=== PATIENT | male | born 1975 | race Hispanic/Latino ===

== ENCOUNTER 2019-01-10 02:07 | Emergency (ER) | payer OTHER, SELFPAY ==
[2019-01-10 02:10] VITALS: BP 152/91; PULSE 66; RESP 15; TEMP 36.6; O2SAT 98; BMI 30.7
[2019-01-10 02:19] LABS: Bilirubin Urine UA NEGATIVE (NEGATIVE); Color Urine UA YELLOW; Glucose Urine UA NEGATIVE (Negative); Ketones Urine UA NEGATIVE (NEGATIVE); Leukocyte Esterase Urine UA NEGATIVE (NEGATIVE); Nitrite Urine UA NEGATIVE (Negative); Occult Blood Urine UA 3+ (Negative); Protein Urine UA 1+ (Negative); Specific Gravity Urine UA >=1.030 (1.000-1.035); Urobilinogen Urine UA 0.2 E.U./dL (0.2)
--- NOTE | 2019-01-10 02:23 | DI.CT.S_ITS ---
PROCEDURE: CT KIDNEY URETER BLADDER (KUB) INDICATIONS: L flank pain, nausea TECHNIQUE: Noncontrast 5 mm thick sections acquired from the diaphragms to the symphysis. 5 mm thick coronal and sagittal reformats were then performed. For radiation dose reduction, the following was used: automated exposure control, adjustment of mA and/or kV according to patient size. COMPARISON: None. FINDINGS: Image quality: Excellent. Lung bases: Lung bases are clear. Heart size is normal. Urinary system: There is a 2-3 mm stone seen at the distalmost left ureterovesicular junction, as on series 2 image 91. There is associated mild left-sided hydroureter and hydronephrosis. There is a nonobstructing 1-2 mm stone seen within the left kidney. No nonobstructing right-sided kidney stones are seen. No right-sided hydronephrosis. Both kidneys are normal in size. There is a water density cyst at the superior pole of the right kidney that measures 11 mm. Both ureters appear non-dilated throughout their expected courses. Bladder wall thickness is normal; no calcified bladder stones. Other solid organs: Liver is normal in size. Diffuse fatty liver infiltration is noted. Gallbladder wall is not thickened. Pancreas is normal in contours. Spleen is normal in size. No adrenal nodules. Peritoneum and bowel: Unenhanced bowel loops demonstrate normal wall thickness and caliber. No free fluid or air. Incidental note is made of a normal-appearing appendix. Nodes and vessels: No retroperitoneal or mesenteric adenopathy by size criteria. Aorta and inferior vena cava are normal in caliber. Abdominal wall: No ventral hernias. Pelvis: No free pelvic fluid. No inguinal hernias or adenopathy. Bones: No suspicious bony lesions. No vertebral body compression fractures. IMPRESSION: 2-3 mm obstructing left ureterovesicular junction stone. 1-2 mm nonobstructing left-sided kidney stone. Incidental note is made of: Fatty liver infiltration Normal appendix Note: No significant discrepancy from the preliminary report. Dictated by: Sudheer Garzon M.D. on 01/10/2019 at 8:43 Approved by: Sudheer Garzon M.D. on 01/10/2019 at 8:46
[2019-01-10 02:24] LABS: Appearance Urine UA Cloudy
--- NOTE | 2019-01-10 02:25 | ED.ABDPAIN ---
HPI - Abdominal Pain General Chief Complaint: Abdominal Pain Stated Complaint: Abd pain Time Seen by Provider: 01/10/19 02:17 Source: patient Mode of arrival: ambulatory Limitations: no limitations History of Present Illness HPI narrative: Patient comes emergency department complaining of left-sided abdominal pain that started suddenly around midnight tonight. Patient states he had been feeling well before, but suddenly developed the pain and also became nauseated. Patient states the pain has continued, and that he has never had pain like this before. He denies fevers or chills. No dysuria. No gross hematuria. No diarrhea or constipation. No chest pain, shortness breath, or cough. No other complaints at this time. Patient rates his pain at 10/10. Nothing makes it better or worse. Related Data Allergies Allergy/AdvReac Type Severity Reaction Status Date / Time No Known Drug Allergies Allergy Verified 01/10/19 02:12 Review of Systems Constitutional Constitutional: Denies chills, Denies fatigue, Denies fever(s), Denies frequent falls, Denies lethargy and Denies weakness Eyes Eyes: Denies change in vision, Denies eye discharge, Denies irritation and Denies loss of vision ENT Ears, Nose, Mouth, and Throat: Denies change in voice, Denies dizziness, Denies neck pain, Denies sore throat and Denies throat swelling Cardiovascular Cardiovascular: Denies chest pain, Denies irregular heart rhythm, Denies lightheadedness, Denies palpitations, Denies dyspnea, Denies dyspnea on exertion and Denies orthopnea Respiratory Respiratory: Denies cough, Denies dyspnea, Denies dyspnea on exertion and Denies wheezing Gastrointestinal Gastrointestinal: Reports abdominal pain, Denies change in bowel habits, Denies diarrhea, Reports nausea and Denies vomiting Genitourinary Genitourinary: Denies hematuria, Denies flank pain, Denies urinary incontinence and Denies urinary urgency Musculoskeletal Musculoskeletal: Denies back pain, Denies muscle weakness, Denies neck pain, Denies numbness and Denies tingling Integumentary/Breasts Skin/Breast: Denies pruritus, Denies erythema, Denies rash and Denies wounds Neurologic Neurologic: Denies behavioral changes, Denies confusion, Denies dizziness, Denies frequent falls, Denies loss of vision, Denies numbness, Denies tingling and Denies weakness Psychiatric Psychiatric: Denies anxiety, Denies behavioral changes, Denies confusion, Denies depression, Denies homicidal ideation and Denies suicidal ideation Endocrine Endocrine: Denies fatigue, Denies flushing and Denies palpitations Hematologic/Lymphatic Hematologic/Lymphatic: Denies easy bruising Allergic/Immunologic Allergic/Immunologic: Denies urticaria, Denies throat swelling and Denies wheezing [facility] Medical History Healthy adult (Acute) Surgical History No pertinent past surgical history (Acute) Social History Smoking Status: Never smoker Social History Smoking Status: Never smoker Exam Narrative Exam Narrative: Patient is finally diaphoretic and writhing in pain, grimacing and groaning. He is holding his left abdomen. Initial Vital Signs Initial Vital Signs: Vital Signs Temperature 97.8 F 01/10/19 02:10 Pulse Rate 66 01/10/19 02:10 Respiratory Rate 15 01/10/19 02:10 Blood Pressure 152/91 H 01/10/19 02:10 Pulse Oximetry 98 01/10/19 02:10 Const General: cooperative and well developed Nutritional Appearance: well nourished Orientation: alert, awake, oriented x3 and not confused [facility] Head: normocephalic and atraumatic Ears: external ears normal Nose: external nose normal and No nasal discharge Face and sinus: face symmetric and No dry mucous membranes Mouth: oral mucosae normal and moist mucous membranes Teeth and gingiva: dentition normal Eyes General: appearance normal, both eyes and all related structures Eyelids: eyelids normal Conjunctivae: conjunctivae normal Sclera: sclerae normal Pupils: PERRL EOM: EOM intact bilaterally Neck Neck: normal visual inspection, trachea midline, No lymphadenopathy, No midline deformity and No JVD Lymphatic: No lymphedema Chest Chest: normal inspection of the chest Resp Effort & Inspection: normal respiratory effort, able to speak in complete sentences, no respiratory distress and no use of accessory muscles Auscultation: clear to auscultation bilaterally, no rales, no rhonchi and no wheezes Cardio Rate: regular rate Rhythm: regular rhythm Heart Sounds: no click, no gallops, no murmurs and no rubs Pulses: normal peripheral pulses GI Inspection: non-distended Palpation: soft, no hepatosplenomegaly, No guarding, No pulsatile mass and tender (Moderate, left mid abdomen and flank; mild suprapubic) Auscultation: normal bowel sounds Back/Spine/Pelvis Back: No CVA tenderness Cervical Spine: cervical ROM normal and No pain with cervical ROM Thoracic/Lumbar Spine: thoracic and lumbar spine normal to inspection Skin General: no rashes or lesions noted, No jaundice and No petechiae Other: Mild, fine diaphoresis. Neuro General: alert, oriented x3, gait normal and no focal motor deficits Speech: speech normal Extrem General: full ROM, no clubbing, cyanosis or edema, no pedal edema and no calf tenderness Psych Appearance: well kempt Mental Status: mental status grossly normal Attitude: cooperative Thought Content: normal and suicidality Judgment: judgment good Course Course Course Narrative: Patient was worked up with urinalysis, labs, and CT KUB. He was treated symptomatically with IV fluid, Toradol, Zofran, and Dilaudid. He was found to have a kidney stone, but was feeling much better on re-evaluation. We have discussed the findings today, as well as home management the symptoms in the usual indications for return. Patient has been encouraged to drink plenty of water and to keep an eye out for the stone when he urinates. We have discussed the possibility of follow-up with Urology, if the patient desires. Orders Ordered: Discontinued Medications Hydrocodone Bitart/Acetaminophen (Vicodin Prepack) 1 bottle [facility] [place] Stop: 01/10/19 03:33 Last Admin: 01/10/19 03:46 Dose: 1 bottle Documented by: RILEY Hydromorphone HCl (Dilaudid) 0.5 mg IV NOW ONE Stop: 01/10/19 02:22 Last Admin: 01/10/19 02:26 Dose: 0.5 mg Documented by: EDGAR Hydromorphone HCl (Dilaudid) 1 mg IV NOW ONE Stop: 01/10/19 03:25 Last Admin: 01/10/19 03:29 Dose: 1 mg Documented by: RILEY Sodium Chloride (Normal Saline 0.9%) 1,000 mls @ 1,000 mls/hr IV BOLUS ONE Stop: 01/10/19 03:20 Last Infusion: 01/10/19 03:38 Dose: 0 mls/hr Documented by: Admin: 01/10/19 02:26 Dose: 1,000 mls/hr Documented by: EDGAR Ketorolac Tromethamine (Toradol) 30 mg IV NOW ONE Stop: 01/10/19 02:22 Last Admin: 01/10/19 02:27 Dose: 30 mg Documented by: EDGAR Ondansetron HCl (Zofran) 4 mg IV NOW ONE Stop: 01/10/19 02:22 Last Admin: 01/10/19 02:27 Dose: 4 mg Documented by: EDGAR Ondansetron HCl (Zofran Odt Prepack) 1 bottle [facility] ONE Stop: 01/10/19 03:33 Last Admin: 01/10/19 03:46 Dose: 1 bottle Documented by: RILEY Vital Signs Vital signs: Vital Signs - 8 hr 01/10/19 02:10 Temperature 97.8 F Pulse Rate 66 Respiratory Rate 15 Blood Pressure 152/91 H Pulse Oximetry 98 MDM - Abdominal Pain Medical Records Attestation: I reviewed the patient's medical records. Lab Data Attestation: I reviewed the patient's lab results. Result diagrams: 01/10/19 02:15 01/10/19 02:15 Labs: Lab Results 01/10/19 01/10/19 01/10/19 Range/Units 02:10 02:15 02:15 WBC 13.8 H (4.5-11.0) X10^3/uL RBC 5.37 (4.5-5.9) X10^6/uL Hgb 15.8 (13.5-17.5) g/dL Hct 46.0 (41-53) % MCV 85.7 (80-100) fL MCH 29.4 (26-34) PG MCHC 34.3 (30-36) % RDW 13.3 (11.6-14.8) % Plt Count 252 (150-400) X10^3/uL Neut % (Auto) 71.3 (50-75) % Lymph % (Auto) 17.4 L (25-40) % Perkins % (Auto) 8.4 (3-14) % Eos % (Auto) 2.4 (2-4) % Baso % (Auto) 0.5 (0-2) % Neut # (Auto) 9900 H (2903-1161) /uL Lymph # (Auto) 2400 (4345-5018) /uL Perkins # (Auto) 1200 H (0-900) /uL Eos # (Auto) 300 (0-450) /uL Baso # (Auto) 100 (0-100) /uL Sodium 138 (137-145) mmol/L Potassium 4.3 (3.4-5.1) mmol/L Chloride 104 (98-107) mmol/L Carbon Dioxide 24 (22-32) mmol/L BUN 20 (9-20) mg/dL Creatinine 0.90 (0.66-1.25) mg/dL Estimated GFR > 60.0 (>60) mL/min BUN/Creatinine Ratio 22.2 H (6-22) Glucose 142 H (70-100) mg/dL Calcium 9.2 (8.4-10.2) mg/dL Total Bilirubin 0.6 (0.2-1.3) mg/dL AST 51 (17-59) IU/L ALT 122 H (21-72) IU/L Alkaline Phosphatase 96 (38-126) U/L Total Protein 7.9 (6.3-8.2) g/dL Albumin 4.5 (3.5-5.0) g/dL Globulin 3.4 (1.7-4.1) g/dL Albumin/Globulin Ratio 1.3 (1.0-2.8) Lipase 75 (23-300) U/L Urine Color Yellow Urine Appearance Cloudy Urine pH 5.0 (4.5-8.0) Ur Specific [place] >=1.030 H (1.000-1.035) Urine Protein 1+ H (Negative) Urine Glucose (UA) Negative (Negative) g/dL Urine Ketones Negative (NEGATIVE) Urine Occult Blood 3+ H (Negative) Urine Nitrate Negative (Negative) Urine Bilirubin Negative (NEGATIVE) Urine Urobilinogen 0.2 (0.2) E.U./dL Ur Leukocyte Esterase Negative (NEGATIVE) Urine RBC >100/hpf (0-5/HPF) Urine WBC 0-1/hpf (0-5/HPF) Urine Bacteria Occasional (0-1) (None) Ur Culture Indicated? Cult not indicated Imaging Data CT scan - abdomen: Radiologist's impression: ADDENDUM This report includes an Addendum and supersedes previous reports for this exam. PROCEDURE: CT KIDNEY URETER BLADDER (KUB) INDICATIONS: L flank pain, nausea TECHNIQUE: Noncontrast 5 mm thick sections acquired from the diaphragms to the symphysis. 5 mm thick coronal and sagittal reformats were then performed. For radiation dose reduction, the following was used: automated exposure control, adjustment of mA and/or kV according to patient size. COMPARISON: None. FINDINGS: Image quality: Excellent. Lung bases: Lung bases are clear. Heart size is normal. Urinary system: There is a 2-3 mm stone seen at the distalmost left ureterovesicular junction, as on series 2 image 91. There is associated mild left-sided hydroureter and hydronephrosis. There is a nonobstructing 1-2 mm stone seen within the left kidney. No nonobstructing right-sided kidney stones are seen. No right-sided hydronephrosis. Both kidneys are normal in size. There is a water density cyst at the superior pole of the right kidney that measures 11 mm. Bladder wall thickness is normal; no calcified bladder stones. Other solid organs: Liver is normal in size. Diffuse fatty liver infiltration is noted. Gallbladder wall is not thickened. Pancreas is normal in contours. Spleen is normal in size. No adrenal nodules. Peritoneum and bowel: Unenhanced bowel loops demonstrate normal wall thickness and caliber. No free fluid or air. Incidental note is made of a normal-appearing appendix. Nodes and vessels: No retroperitoneal or mesenteric adenopathy by size criteria. Aorta and inferior vena cava are normal in caliber. Abdominal wall: No ventral hernias. Pelvis: No free pelvic fluid. No inguinal hernias or adenopathy. Bones: No suspicious bony lesions. No vertebral body compression fractures. IMPRESSION: 2-3 mm obstructing left ureterovesicular junction stone. 1-2 mm nonobstructing left-sided kidney stone. Incidental note is made of: Fatty liver infiltration Normal appendix Note: No significant discrepancy from the preliminary report. Dictated by: Sudheer Garzon M.D. on 01/10/2019 at 8:43 Approved by: Sudheer Garzon M.D. on 01/10/2019 at 8:46 ADDENDUM: Extraneous words removed from the above report. Dictated by: Sudheer Garzon M.D. on 01/10/2019 at 9:58 Approved by: Sudheer Garzon M.D. on 01/10/2019 at 9:59 Addendum Dictated By:Sudheer Garzon MD Addendum Signed By: Addendum Cosigned By: DD/ /29/1100 TD/TT: 01/10/1906/29/1100 PROCEDURE: CT KIDNEY URETER BLADDER (KUB) INDICATIONS: L flank pain, nausea TECHNIQUE: Noncontrast 5 mm thick sections acquired from the diaphragms to the symphysis. 5 mm thick coronal and sagittal reformats were then performed. For radiation dose reduction, the following was used: automated exposure control, adjustment of mA and/or kV according to patient size. COMPARISON: None. FINDINGS: Image quality: Excellent. Lung bases: Lung bases are clear. Heart size is normal. Urinary system: There is a 2-3 mm stone seen at the distalmost left ureterovesicular junction, as on series 2 image 91. There is associated mild left-sided hydroureter and hydronephrosis. There is a nonobstructing 1-2 mm stone seen within the left kidney. No nonobstructing right-sided kidney stones are seen. No right-sided hydronephrosis. Both kidneys are normal in size. There is a water density cyst at the superior pole of the right kidney that measures 11 mm. Both ureters appear non-dilated throughout their expected courses. Bladder wall thickness is normal; no calcified bladder stones. Other solid organs: Liver is normal in size. Diffuse fatty liver infiltration is noted. Gallbladder wall is not thickened. Pancreas is normal in contours. Spleen is normal in size. No adrenal nodules. Peritoneum and bowel: Unenhanced bowel loops demonstrate normal wall thickness and caliber. No free fluid or air. Incidental note is made of a normal-appearing appendix. Nodes and vessels: No retroperitoneal or mesenteric adenopathy by size criteria. Aorta and inferior vena cava are normal in caliber. Abdominal wall: No ventral hernias. Pelvis: No free pelvic fluid. No inguinal hernias or adenopathy. Bones: No suspicious bony lesions. No vertebral body compression fractures. IMPRESSION: 2-3 mm obstructing left ureterovesicular junction stone. 1-2 mm nonobstructing left-sided kidney stone. Incidental note is made of: Fatty liver infiltration Normal appendix Note: No significant discrepancy from the preliminary report. Dictated by: Sudheer Garzon M.D. on 01/10/2019 at 8:43 Approved by: Sudheer Garzon M.D. on 01/10/2019 at 8:46 Discharge Plan Departure Patient Disposition: Home Clinical Impression: Ureterolithiasis Discharge Date/Time: 01/10/19 03:48 Instructions: DI for Kidney Stones Activity Restrictions/Additional Instructions: Your CT scan shows a small kidney stone that is about to pass into her bladder. This has been the cause of her pain. This should pass within hours to the next day or so at very most. Please take the pain and nausea medication, as needed. Drink plenty of fluids to help the stone pass. Referrals: [facility] [Provider Group]
[2019-01-10] MEDS: HYDROMORPHONE 0.5 MG INJ IV (02:26)
[2019-01-10] MEDS: SODIUM CHLORIDE 0.9% 1,000 ML 1000 ML IV (02:26)
[2019-01-10] MEDS: KETOROLAC 60 MG/2 ML VIAL 30 MG IV (02:27)
[2019-01-10] MEDS: ONDANSETRON 4 MG/2 ML INJ IV (02:27)
[2019-01-10 02:29] LABS: Add Manual Diff / Slide Review NO; Basophils Absolute Auto 100 /uL (0-100); Basophils Percent Auto 0.5 % (0-2); Eosinophils Absolute Auto 300 /uL (0-450); Eosinophils Percent Auto 2.4 % (2-4); Hemoglobin 15.8 g/dL (13.5-17.5); Lymphocytes Absolute Auto 2400 /uL (1100-4500); Lymphocytes Percent Auto 17.4 % (25-40); Mean Corpuscular HGB Conc 34.3 % (30-36); Mean Corpuscular Hemoglobin 29.4 PG (26-34); Mean Corpuscular Volume 85.7 fL (80-100); Monocytes Absolute Auto 1200 /uL (0-900); Monocytes Percent Auto 8.4 % (3-14); Neutrophils Absolute Auto 9900 /uL (1500-7000); Neutrophils Percent Auto 71.3 % (50-75); Platelet Count 252 X10^3/uL (150-400); Red Blood Cell Count 5.37 X10^6/uL (4.5-5.9); Red Cell Distribution Width 13.3 % (11.6-14.8); White Blood Cell Count 13.8 X10^3/uL (4.5-11.0)
[2019-01-10 02:35] LABS: Alanine Aminotransferase 122 IU/L (21-72); Albumin 4.5 g/dL (3.5-5.0); Albumin Globulin Ratio 1.3 (1.0-2.8); Alkaline Phosphatase 96 U/L (38-126); Aspartate Aminotransferase 51 IU/L (17-59); BUN Creatinine Ratio 22.2 (6-22); Bilirubin Total 0.6 mg/dL (0.2-1.3); Blood Urea Nitrogen 20 mg/dL (9-20); Calcium 9.2 mg/dL (8.4-10.2); Carbon Dioxide 24 mmol/L (22-32); Chloride 104 mmol/L (98-107); Estimated Glomerular Filt Rate > 60.0 mL/min (>60); Globulin 3.4 g/dL (1.7-4.1); Glucose 142 mg/dL (70-100); HEMOLYSIS < 15 (0-50); Lipase 75 U/L (23-300); Potassium 4.3 mmol/L (3.4-5.1); Sodium 138 mmol/L (137-145); Total Protein 7.9 g/dL (6.3-8.2)
[2019-01-10 02:36] LABS: Bacteria Urine Occasional (0-1); Culture Indicated Urine Cult Not Indicated; RBC Urine >100/HPF (0-5/HPF); WBC Urine 0-1/HPF (0-5/HPF)
[2019-01-10 03:15] VITALS: BP 127/72; PULSE 72; RESP 16; O2SAT 98
[2019-01-10] MEDS: HYDROMORPHONE 1 MG INJ IV (03:29)
[2019-01-10] MEDS: ONDANSETRON 4 MG ODT PREPACK 1 BOTTLE MISC (03:46)
[2019-01-10] MEDS: HYDROCODONE/ACET 5/325 PREPACK 1 BOTTLE MISC (03:46)
== END 2019-01-10 03:48 | disposition home or self-care (01) ==
PROVIDERS: Emergency Provider Emergency Medicine
DX: N20.1 Calculus of ureter (principal)
CPT/HCPCS: 36591; 74176; 80053; 81001; 83690; 85025; 96361; 96374; 96375; 96376; 99283; 99284; J1170; J1885; J2405

== ENCOUNTER → 2019-03-29 11:36 | Outpatient (CLI) | payer OTHER, SELFPAY ==
--- NOTE | 2019-03-29 | DI.MRI.S_ITS ---
PROCEDURE: MR LUMBAR SPINE WO CON INDICATIONS: Low back pain post lifting injury TECHNIQUE: Noncontrast sagittal T1 spin echo and T2 fast echo, sagittal STIR, axial T1 and T2 fast spin echo through the lumbar spine. In cases with scoliosis, additional coronal T2 fast spin echo may be performed. COMPARISON: None. FINDINGS: Image quality: Excellent. Alignment and Curvature: There is normal bony alignment. Bone Marrow: Minimal reactive endplate changes noted adjacent to the L5-S1 disc. No acute vertebral body compression fractures. Spinal Cord: Conus medullaris terminates at the L1 level. Visualized cord demonstrates normal signal and size. Paraspinous Soft Tissues: No paravertebral masses. L1-L2: Normal appearance. L2-L3: Normal appearance. L3-L4: Normal appearance. L4-L5: Normal appearance. L5-S1: Loss of the signal. Mild, diffuse disc bulge. No central stenosis. Mild bilateral neural foraminal narrowing. No neural compression. IMPRESSION: 1. Mild L5-S1 degenerative disc disease. 2. No central stenosis. 3. Mild bilateral L5-S1 neural foraminal narrowing. 4. No neural impingement. 5. No vertebral compression fracture. Dictated by: Rula Rg MD, PhD on 03/29/2019 at 13:27 Approved by: Rula Rg MD, PhD on 03/29/2019 at 13:30
== END ==
PROVIDERS: Visit Provider Family Medicine
DX: M54.5 Low back pain (principal); M51.17 Intervertebral disc disorders with radiculopathy, lumbosacral region
CPT/HCPCS: 72148